=== PATIENT | female | born 1975 | race Caucasian/White ===

== ENCOUNTER 2018-07-29 12:06 | Emergency (ER) | payer OTHER ==
[~2018-07-29] VITALS: Ht 182.9 cm; Wt 99.8 kg
[2018-07-29] MEDS ORDERED: ZANTAC 150MG T150 MG PO (12:18)
[2018-07-29] MEDS ORDERED: NEURONTIN 300300 M1 PO (12:18)
[2018-07-29 12:36] LABS: ABSOLUTE EOSINOPHILS 0.3 thou/uL (0.0-0.7); ABSOLUTE LYMPHOCYTES 1.9 thou/uL (0.8-5.3); ABSOLUTE MONOCYTES 0.6 thou/uL (0.0-1.2); ABSOLUTE NEUTROPHILS 3.8 thou/uL (1.6-8.1); BASOPHILS 0.4 %; EOSINOPHILS 4.7 %; HEMATOCRIT 37.7 % (37.0-47.0); HEMOGLOBIN 12.8 gm/dL (12.0-15.0); MCH 28.8 pg (26.0-34.0); MCHC 34.1 g/dL (28.0-37.0); MCV 84.6 fL (80.0-100.0); MONOCYTES 8.9 %; MPV 8.1 fl. (7.2-11.1); NUCLEATED RBCS 0 /100WBC; PLATELET COUNT* 222 thou/uL (150-400); RBC 4.46 mil/uL (4.20-5.00); RDW-CV 13.9 % (10.5-14.5); WBC 6.7 thou/uL (4.0-11.0)
[2018-07-29 12:57] LABS: ALBUMIN 3.9 g/dL (3.4-5.0); ALKALINE PHOSPHATASE 80 U/L (46-116); CALCIUM 8.8 mg/dL (8.5-10.1); CHLORIDE 104 mmol/L (98-107); CO2 28 mmol/L (21-32); CREATININE 0.8 mg/dL (0.6-1.3); GLUCOSE 102 mg/dL (70-99); LIPASE 107 U/L (73-393); NT-PRO BRAIN NAT PEPTIDE 124 pg/mL (<300); SGOT 16 U/L (15-37); SGPT 21 U/L (30-65); TOTAL BILIRUBIN 0.5 mg/dL (<0.1-1.0); TOTAL PROTEIN 7.6 g/dL (6.4-8.2); TROPONIN-I LEVEL <0.06 ng/mL (<0.06)
[2018-07-29 13:05] LABS: ANION GAP 10 mmol/L (7-16); BUN 8 mg/dL (7-18); POTASSIUM 3.4 mmol/L (3.5-5.1); SODIUM 142 mmol/L (136-145)
[2018-07-29 14:30] LABS: URINE BILIRUBIN NEGATIVE (Negative); URINE BLOOD NEGATIVE (Negative); URINE CLARITY CLEAR; URINE COLOR YELLOW; URINE GLUCOSE-RANDOM NEGATIVE (Negative); URINE KETONES NEGATIVE (Negative); URINE LEUKOCYTES-REFLEX NEGATIVE (Negative); URINE NITRITE-REFLEX NEGATIVE (Negative); URINE PROTEIN NEGATIVE (Negative); URINE SPECIFIC GRAVITY <= 1.005 (1.005-1.030); URINE UROBILINOGEN 0.2 E.U./dl (0.2-1.0)
[2018-07-29] MEDS ORDERED: HYDROCODON-ACE1 EAC8 PO (15:14)
[2018-07-29] MEDS ORDERED: ZOFRAN4 MG PO (15:14)
[2018-07-29 15:35] VITALS: BP 105/59
--- NOTE | 2018-07-31 13:05 | EKG ---
[place] [address] ELECTROCARDIOGRAM REPORT Name: SESAR GARCIA Room: [facility]#: [id number] Admission: 07/29/18 Attend Phys: Discharge: 07/29/18 Date of : 77 Report #: [id number] THIS REPORT FOR: //name// [facility] ED Test Date: 2018-07-29 Test Time: 12:13:39 Pat Name: SESAR GARCIA Department: Room: Gender: F Proofer Prepress: ANAI : 1975 Requested By: Valentín Dior Order Number: [id number] MD: Brendon Jenkins Measurements Intervals [place] Rate: 66 P: 113 RI: 144 QRS: 64 QRSD: 93 T: 91 QT: 397 QTc: 416 Interpretive Statements Sinus rhythm Artifact in lead(s) I,aVR,aVF,V2 No previous ECG available for comparison Electronically Signed On 07-31-2018 13:05:06 CDT by Brendon Jenkins [email or web address] <ELECTRONICALLY SIGNED> By: Brendon Jenkins MD, [facility] 07/31/18 1305 1213 12 Brendon Jenkins MD, FACC /EPI
== END 2018-07-29 15:35 | disposition home or self-care (01) ==
LOC: M.ERS 12:06
PROVIDERS: Emergency Medicine
DX: K80.20 Calculus of gallbladder without cholecystitis without obstruction (principal); K21.9 Gastro-esophageal reflux disease without esophagitis; Z88.1 Allergy status to other antibiotic agents; Z88.2 Allergy status to sulfonamides; Z88.8 Allergy status to other drugs, medicaments and biological substances